=== PATIENT | female | born 1980 | race African-American/Black ===

== ENCOUNTER → 2016-12-08 | Day surgery (SDC) | payer MEDICAID ==
[~2016-12-08] VITALS: Ht 182.9 cm; Wt 65.5 kg
[~2016-12-08] MED LIST: ALBU8.5H PO; BENZOCAINE 20% 50 MCG/SPRAY 57 GM TP ONE; FLUT1DIS3 PO; FLUT44HFA IH; FentaNYL CITRATE-PF 100 MCG/2 ML VIAL ONE; LIDOCAINE HCL 2% 30 ML JELLY TP ONE; LIDOCAINE HCL 4% 50 ML SOLUTION TP ONE; MIDAZOLAM HCL 2 MG/2 ML VIAL ONE; MethylPREDNISolone SOD SUCC 125 MG/2 ML VIAL IVP ONE; MethylPREDNISolone SOD SUCC 125 MG/2 ML VIAL ONE; NEBU1KIT MC; OXYGEN THERAPY IH SCH; SODIUM CHLORIDE 0.9% 1,000 ML IV ONE
== END | disposition home or self-care (01) ==
LOC: SURGERY 06:23
PROVIDERS: ATTEND Internal Medicine Critical Care Medicine
DX: J38.4 Edema of larynx (principal); B37.0 Candidal stomatitis; J45.909 Unspecified asthma, uncomplicated; D56.9 Thalassemia, unspecified; F17.200 Nicotine dependence, unspecified, uncomplicated; Z98.51 Tubal ligation status
CPT/HCPCS: 31623; 31624; 71010; 87015; 87070; 87101; 87205; 87220; 87252; J2250; J2930; J3010; J7030; 88312

== ENCOUNTER 2017-01-14 12:04 | Emergency (ER) | payer MEDICAID ==
[~2017-01-14] VITALS: Ht 182.9 cm; Wt 67.0 kg
[~2017-01-14 12:04] MED LIST changes: -BENZOCAINE 20% 50 MCG/SPRAY 57 GM TP ONE; -FLUT1DIS3 PO; -FLUT44HFA IH; -FentaNYL CITRATE-PF 100 MCG/2 ML VIAL ONE; -LIDOCAINE HCL 2% 30 ML JELLY TP ONE; -LIDOCAINE HCL 4% 50 ML SOLUTION TP ONE; -MIDAZOLAM HCL 2 MG/2 ML VIAL ONE; -MethylPREDNISolone SOD SUCC 125 MG/2 ML VIAL IVP ONE; -MethylPREDNISolone SOD SUCC 125 MG/2 ML VIAL ONE; -NEBU1KIT MC; -OXYGEN THERAPY IH SCH; -SODIUM CHLORIDE 0.9% 1,000 ML IV ONE
[2017-01-14 12:15] VITALS: BP 123/86
[2017-01-14] MEDS ORDERED: TraMADol HCL 50 MG TABLET PO ONE (15:00)
== END 2017-01-14 15:28 | disposition home or self-care (01) ==
LOC: EMS 12:05
DX: S62.637A Displaced fracture of distal phalanx of left little finger, initial encounter for closed fracture (principal); J45.909 Unspecified asthma, uncomplicated; F17.210 Nicotine dependence, cigarettes, uncomplicated; Z88.8 Allergy status to other drugs, medicaments and biological substances; Z88.6 Allergy status to analgesic agent; W19.XXXA Unspecified fall, initial encounter; Y93.54 Activity, bowling; Y92.89 Other specified places as the place of occurrence of the external cause; Y99.8 Other external cause status
CPT/HCPCS: 99284

== ENCOUNTER 2018-01-13 19:50 | Emergency (ER) | payer MEDICAID ==
[~2018-01-13] VITALS: Ht 182.9 cm; Wt 80.5 kg
[~2018-01-13 19:50] MED LIST changes: -ALBU8.5H PO; +ALBU8.5H8 PO
[2018-01-13] MEDS ORDERED: OxyCODONE HCL/ACETAMINOPHEN 5-325 MG TABLET PO ONE (20:30)
[2018-01-13 21:33] LABS: APPEARANCE,URINE CLEAR (CLEAR); BILIRUBIN,URINE NEGATIVE (NEGATIVE); GLUCOSE, URINE (UA) NEGATIVE (NEGATIVE); KETONES,URINE NEGATIVE (NEGATIVE); LEUKOCYTE ESTERASE ,URINE NEGATIVE (NEGATIVE); NITRATE,URINE NEGATIVE (NEGATIVE); OCCULT BLOOD,URINE NEGATIVE (NEGATIVE); PROTEIN,URINE NEGATIVE (NEGATIVE)
[2018-01-13 21:45] VITALS: BP 118/74
[2018-01-13] MEDS ORDERED: DEXAMETHASONE SOD PHOS 4 MG/ML 5 ML VIAL IM ONE (21:45)
== END 2018-01-13 21:54 | disposition home or self-care (01) ==
LOC: EMS 19:51
DX: M54.42 Lumbago with sciatica, left side (principal); J45.909 Unspecified asthma, uncomplicated; F17.210 Nicotine dependence, cigarettes, uncomplicated; Z88.2 Allergy status to sulfonamides; Z88.6 Allergy status to analgesic agent
CPT/HCPCS: 81003; 81025; 96372; 99283; J1100

== ENCOUNTER 2019-09-06 19:53 | Emergency (ER) | payer MEDICAID ==
[~2019-09-06] VITALS: Ht 185.4 cm; Wt 72.7 kg
[2019-09-06] MEDS ORDERED: GABA-529 PO (20:41)
[2019-09-06] MEDS ORDERED: DIAZEPAM 5 MG TABLET PO ONE (21:30)
[2019-09-06] MEDS ORDERED: KETOROLAC TROMETHAMINE 60 MG/2 ML VIAL IM ONE (21:30)
[2019-09-06 21:40] VITALS: BP 107/72
== END 2019-09-06 21:42 | disposition home or self-care (01) ==
LOC: EMS 19:54
DX: G89.29 Other chronic pain (principal); M54.41 Lumbago with sciatica, right side; J45.909 Unspecified asthma, uncomplicated; F17.210 Nicotine dependence, cigarettes, uncomplicated; Z98.51 Tubal ligation status; Z79.899 Other long term (current) drug therapy; Z98.890 Other specified postprocedural states; Z88.2 Allergy status to sulfonamides; Z88.6 Allergy status to analgesic agent; Z88.1 Allergy status to other antibiotic agents
CPT/HCPCS: 96372; 99283; J1885